=== PATIENT | female | born 1970 | race African-American/Black ===

== ENCOUNTER 2022-07-09 15:03 | Inpatient (IN) ==
[2022-07-09 15:36] LABS: Basophils % 0.4 % (0.0-0.8); Eosinophils # 0.1 10*3/uL (0.0-0.87); Eosinophils % 2.5 % (0.00-10.9); Hematocrit 44.3 VOL% (35.7-47.0); Hemoglobin 13.7 GM/DL (12.0-16.0); Immature Granulocytes % 0.2 %; Immature Granulocytes Absolute 0.01 #; Lymphocytes % 42.2 % (21.3-54.2); Mean Corpuscular HGB Conc 30.9 GM/DL (32-36); Mean Corpuscular Volume 81.3 FL (87-102); Mean Platelet Volume 9.6 FL (9.6-12.0); Monocytes # 0.3 10*3/uL (0.11-0.8); Monocytes % 6.9 % (1.7-12.7); Neutrophils % 47.8 % (38.7-73.9); Platelet Count 376 T/CUMM (130-400); Red Blood Count 5.45 MC/CUMM (3.8-5.5); White Blood Count 4.8 T/CUMM (4-12)
[2022-07-09 15:54] LABS: Albumin 4.1 G/DL (3.4-5.0); Bilirubin,Total 0.5 MG/DL (0.20-1.00); Calcium 10.4 MG/DL (8.5-10.1); Potassium 3.5 MMOL/L (3.5-5.1); Total Protein 8.7 G/DL (6.4-8.2)
[2022-07-09] MEDS ORDERED: MORPHINE 2 MG/1 ML SYRINGE IV STA ×2 (16:24→18:35)
[2022-07-09] MEDS ORDERED: ONDANSETRON 4 MG/2 ML VIAL IV STA (16:24)
[2022-07-09] MEDS ORDERED: NITROGLYCERIN 2% OINT 1 INCH/GM PACK TOP ONE (18:58)
[2022-07-09] MEDS ORDERED: ASPIRIN CHEW 81 MG TABLET PO STA (19:00)
[2022-07-09] MEDS ORDERED: NITROGLYCERIN 2% OINT 1 INCH/GM PACK TOP STA (19:06)
[2022-07-09] MEDS ORDERED: diphenhydrAMINE 50 MG/1 ML VIAL ONE ×2 (19:17→20:07)
[2022-07-09] MEDS ORDERED: methylPREDNISolone SOD SUC 125 MG/2 ML VIAL ONE (19:17)
[2022-07-09] MEDS ORDERED: FAMOTIDINE 20 MG/2 ML VIAL IV STA (19:18)
[2022-07-09] MEDS ORDERED: FAMOTIDINE 20 MG/2 ML VIAL IV ONE (19:18)
[2022-07-09] MEDS ORDERED: methylPREDNISolone SOD SUC 125 MG/2 ML VIAL IV STA (19:18)
[2022-07-09] MEDS ORDERED: diphenhydrAMINE 50 MG/1 ML VIAL IV STA (19:18)
[2022-07-09] MEDS ORDERED: HEPARIN 5,000 UNIT/1 ML VIAL ONE ×2 (19:20→19:54)
[2022-07-09] MEDS ORDERED: HEPARIN 1,000 UNIT/1 ML VIAL IV STA (19:21)
[2022-07-09] MEDS ORDERED: HEPARIN/NACL 0.9% 2 UNITS/ML 2,000 UNIT/1,000 ML BAG IV ONE (19:23)
[2022-07-09] MEDS ORDERED: MIDAZOLAM 2 MG/2 ML VIAL ONE (19:37)
[2022-07-09] MEDS ORDERED: fentaNYL 100 MCG/2 ML VIAL ONE (19:37)
[2022-07-09] MEDS ORDERED: NITROPRUSSIDE 50 MG/2 ML VIAL ONE (20:13)
[2022-07-09] MEDS ORDERED: SODIUM CHLORIDE 0.9% 1,000 ML IV SCH (20:30)
[2022-07-09] MEDS ORDERED: CLOPIDOGREL 300 MG TABLET ONE (20:46)
[2022-07-09] MEDS ORDERED: NITROGLYCERIN SL 0.4 MG TABLET SL PRN (20:47)
[2022-07-09] MEDS ORDERED: ATORVASTATIN 40 MG TABLET PO SCH (21:00)
[2022-07-09] MEDS ORDERED: ALBUTEROL 2.5 MG/3 ML NEB RESP TX PRN (21:27)
[2022-07-09] MEDS ORDERED: diphenhydrAMINE CAP 25 MG CAPSULE ONE (21:34)
[2022-07-09] MEDS: diphenhydrAMINE CAP 25 MG CAPSULE PO SCH ×2 (21:40→23:02)
[2022-07-09] MEDS: FAMOTIDINE 20 MG TABLET PO SCH (21:40)
[2022-07-09] MEDS: CLOPIDOGREL 75 MG TABLET PO SCH (21:40)
[2022-07-09] MEDS: FERROUS SULFATE 325 MG TABLET PO SCH (21:40)
[2022-07-09] MEDS: methylPREDNISolone SOD SUC 125 MG/2 ML VIAL IV SCH (21:41)
[2022-07-10 03:29] LABS: Basophils % 0.1 % (0.0-0.8); Hematocrit 39.9 VOL% (35.7-47.0); Hemoglobin 12.5 GM/DL (12.0-16.0); Immature Granulocytes % 0.4 %; Immature Granulocytes Absolute 0.05 #; Lymphocytes # 0.7 10*3/uL (1.4-4.0); Lymphocytes % 5.6 % (21.3-54.2); Mean Corpuscular HGB Conc 31.3 GM/DL (32-36); Mean Corpuscular Volume 80.1 FL (87-102); Mean Platelet Volume 10.2 FL (9.6-12.0); Monocytes # 0.1 10*3/uL (0.11-0.8); Monocytes % 0.9 % (1.7-12.7); Platelet Count 310 T/CUMM (130-400); Red Blood Count 4.98 MC/CUMM (3.8-5.5); Red Cell Distribution Width 18.2 % (9.3-17.3); White Blood Count 12.6 T/CUMM (4-12)
[2022-07-10 03:54] LABS: Lymphocytes 5 % (20-55); Nucleated Red Blood Cells 1 /100 WBC (0-5); Total Cells Counted 100
[2022-07-10 03:55] LABS: Platelet Estimate Normal
[2022-07-10 03:58] LABS: Calcium 9.4 MG/DL (8.5-10.1); Osmolality,Calculated 270.2 MOS/KG (273-304); Potassium 3.9 MMOL/L (3.5-5.1); Risk Ratio 2.07; VLDL Cholesterol 6.2 MG/DL
[2022-07-10] MEDS: NITROGLYCERIN SL 0.4 MG TABLET SL PRN ×3 (04:42→15:40)
[2022-07-10] MEDS: diphenhydrAMINE CAP 25 MG CAPSULE PO SCH (05:24)
[2022-07-10] MEDS ORDERED: ALUM/MAG/SIMETH/LIDO VISC 1:1 30 ML BOTTLE PO ONE (05:30)
[2022-07-10] MEDS ORDERED: CLOPIDOGREL 75 MG TABLET PO SCH (09:00)
[2022-07-10] MEDS: FERROUS SULFATE 325 MG TABLET PO SCH ×2 (09:56→20:21)
[2022-07-10] MEDS: methylPREDNISolone SOD SUC 125 MG/2 ML VIAL IV SCH ×2 (09:56→20:20)
[2022-07-10] MEDS: ASPIRIN EC 81 MG TABLET PO SCH (09:56)
[2022-07-10] MEDS: amLODIPine 10 MG TABLET PO SCH (09:56)
[2022-07-10] MEDS: FAMOTIDINE 20 MG TABLET PO SCH (11:29)
[2022-07-10] MEDS ORDERED: NITROGLYCERIN DRIP 50 MG/250 ML BOTTLE IV PRN (15:52)
[2022-07-10] MEDS ORDERED: SODIUM CHLORIDE 0.9% 1,000 ML IV SCH ×3 (16:20→18:30)
[2022-07-10 16:30] VITALS: BP 127/82
[2022-07-10] MEDS: CLOPIDOGREL 75 MG TABLET PO SCH (20:21)
[2022-07-10] MEDS ORDERED: ATORVASTATIN 80 MG TABLET PO SCH (21:00)
[2022-07-11 06:26] LABS: Basophils % 0.1 % (0.0-0.8); Hematocrit 39.9 VOL% (35.7-47.0); Hemoglobin 12.7 GM/DL (12.0-16.0); Immature Granulocytes % 0.8 %; Immature Granulocytes Absolute 0.19 #; Lymphocytes # 0.7 10*3/uL (1.4-4.0); Mean Corpuscular HGB Conc 31.8 GM/DL (32-36); Mean Corpuscular Volume 80.4 FL (87-102); Mean Platelet Volume 10.3 FL (9.6-12.0); Monocytes # 0.6 10*3/uL (0.11-0.8); Monocytes % 2.8 % (1.7-12.7); Neutrophils % 93.3 % (38.7-73.9); Platelet Count 301 T/CUMM (130-400); Red Blood Count 4.96 MC/CUMM (3.8-5.5); Red Cell Distribution Width 18.9 % (9.3-17.3); White Blood Count 22.6 T/CUMM (4-12)
[2022-07-11 06:32] LABS: Mucus,Urine Occasional /LPF (Occasional); RBC,Urine 2 /HPF (0-4); Squamous Epithelial Cell,Urine Few /HPF (0-10)
[2022-07-11 06:33] LABS: Bilirubin,Urine Negative (Negative); Blood, Urine Trace mg/dL (Negative); Glucose,Urine (UA) Negative (Negative); Ketones,Urine Negative (Negative); Nitrite,Urine Negative (Negative); Protein,Urine Negative (Negative); Urine Appearance Clear (Clear); Urine Color Yellow (Yellow); Urine Urobilinogen 0.2 eU/dL (<2.0)
[2022-07-11 06:43] LABS: Calcium 9.2 MG/DL (8.5-10.1); Osmolality,Calculated 280.5 MOS/KG (273-304); Potassium 3.9 MMOL/L (3.5-5.1)
[2022-07-11 06:49] LABS: Band Neutrophils 1 % (0-10); Hypochromia Slight; Lymphocytes 5 % (20-55); Microcytosis Slight; Platelet Estimate Adequate; Total Cells Counted 100
[2022-07-11 08:21] LABS: Barbiturates Screen,Urine Negative (Negative); Benzodiazepines Screen,Urine Positive (Negative); Cannabinoid Screen,Urine Positive (Negative); Opiate Screen,Urine Positive (Negative); Phencyclidine Screen,Urine Negative (Negative)
[2022-07-11] MEDS ORDERED: ISOSORBIDE MONONITRATE 60 MG TABLET PO SCH (09:00)
[2022-07-11] MEDS ORDERED: ISOSORBIDE MONONITRATE 30 MG TABLET PO SCH (09:00)
[2022-07-11] MEDS: ASPIRIN EC 81 MG TABLET PO SCH (09:15)
[2022-07-11] MEDS: FERROUS SULFATE 325 MG TABLET PO SCH (09:15)
[2022-07-11] MEDS: amLODIPine 10 MG TABLET PO SCH (09:15)
== END 2022-07-11 03:37 | disposition home or self-care (01) | DRG 247 ==
LOC: N.ED 15:03 → N.EDINP 19:27 → N.ICU 19:35 → N.TELES 07-10 12:27 → N.ICU 07-10 19:15
PROVIDERS: ADMIT Internal Medicine Cardiovascular Disease; ATTEND Internal Medicine Cardiovascular Disease
PROC: CLCCHCL (ICD-10-PCS; 2022-07-09 20:15)